=== PATIENT | female | born 1980 | race American Indian/Alaskan Native ===

== ENCOUNTER 2020-05-19 09:21 | Emergency (ER) | payer BC ==
[2020-05-19] MEDS ORDERED: KETOROLAC 30 MG/1 ML INJ IV ONE ×2 (10:52→16:47)
[2020-05-19] MEDS ORDERED: ONDANSETRON 4 MG/2 ML INJ IV ONE ×2 (10:52→16:57)
[2020-05-19] MEDS ORDERED: SODIUM CHLORIDE 0.9% 1000 ML 1,000 ML IV ONE (10:52)
--- NOTE | 2020-05-19 10:54 | Emergency Department Report ---
ED Abdominal Pain HPI - General Chief Complaint: Nausea/Vomiting/Diarrhea Stated Complaint: VOMIT/ABD PAIN Time Seen by Provider: 05/19/20 10:38 Source: patient Mode of arrival: Wheelchair Limitations: No Limitations - History of Present Illness Initial Comments: 40 yr old female presents to ED c/o Left sided abd pain/left flank pain. She states it started yesterday and it has been severe and constant and radiates into her back. She reports associated n/v/d. She states she has vomitted about 7 times since yesterday and she has had about 2-3 episodes of diarrhea. She denies any hematemesis, melena or hematoschezia. She reports hx of Kidney stones and states symptoms today feels similar. Her last flare up of Kidney stones was about mths ago. She denies any dysuria, urgency or frequency. She states she is currently on her menstrual cycle and there not sure about hematuria. She denies fever, chills or any other symptoms at this time. MD Complaint: abdominal pain, flank pain -: Sudden (yesterday) Location: LUQ, LLQ, L flank Radiation: none Severity: severe Severity scale (0 -10): 10 Quality: stabbing, sharp Consistency: constant Improves With: nothing Worsens With: nothing Associated Symptoms: nausea, vomiting, diarrhea. denies: fever, chills, constipation, dysuria, hematemesis, hematochezia, melena, hematuria, anorexia, syncope - Related Data Previous Rx's Medication Instructions Recorded Last Taken Type Ibuprofen [Motrin] 800 mg PO Q6HR PRN #30 tablet 05/19/20 Unknown Rx Ondansetron [Zofran Odt] 4 mg PO Q8HR PRN #15 tab.rapdis 05/19/20 Unknown Rx Oxycodone HCl/Acetaminophen 1 each PO Q4HR PRN #12 tablet 05/19/20 Unknown Rx [Percocet 10/325 mg] Tamsulosin [Flomax] 0.4 mg PO QDAY #5 cap 05/19/20 Unknown Rx Allergies Allergy/AdvReac Type Severity Reaction Status Date / Time Penicillins Allergy Unknown Verified 05/19/20 09:24 ED Review of Systems ROS: Stated complaint: VOMIT/ABD PAIN Other details as noted in HPI Comment: All other systems reviewed and negative Constitutional: denies: chills, fever Respiratory: denies: cough, shortness of breath, wheezing Cardiovascular: denies: chest pain, palpitations Gastrointestinal: abdominal pain, nausea, vomiting, diarrhea Genitourinary: denies: urgency, dysuria, frequency, abnormal menses Musculoskeletal: back pain Skin: denies: rash, lesions Neurological: as per HPI. denies: headache, weakness, numbness, paresthesias, confusion, abnormal gait, vertigo Psychiatric: denies: anxiety, depression Hematological/Lymphatic: denies: easy bleeding, easy bruising ED Past Medical Hx - Past Medical History Previous Medical History?: No - Surgical History Past Surgical History?: No - Social History Smoking Status: Never Smoker Substance Use Type: None - Medications Home Medications: Home Medications Medication Instructions Recorded Confirmed Last Taken Type Ibuprofen [Motrin] 800 mg PO Q6HR PRN #30 tablet 05/19/20 Unknown Rx Ondansetron [Zofran Odt] 4 mg PO Q8HR PRN #15 tab.rapdis 05/19/20 Unknown Rx Oxycodone HCl/Acetaminophen 1 each PO Q4HR PRN #12 tablet 05/19/20 Unknown Rx [Percocet 10/325 mg] Tamsulosin [Flomax] 0.4 mg PO QDAY #5 cap 05/19/20 Unknown Rx ED Physical Exam - General Limitations: No Limitations General appearance: alert, in distress (from pain) - Head Head exam: Present: atraumatic, normocephalic, normal inspection - Eye Eye exam: Present: normal appearance, PERRL Pupils: Present: normal accommodation - ENT ENT exam: Present: normal exam, mucous membranes moist - Neck Neck exam: Present: normal inspection - Respiratory Respiratory exam: Present: normal lung sounds bilaterally. Absent: respiratory distress - Cardiovascular Cardiovascular Exam: Present: regular rate, normal rhythm, normal heart sounds - GI/Abdominal GI/Abdominal exam: Present: soft, tenderness (Epigastric and LUQ abd ttp with mild guarding but no rebound). Absent: rebound, rigid - Back Exam Back exam: Present: normal inspection, full ROM. Absent: CVA tenderness (R), CVA tenderness (L) - Neurological Exam Neurological exam: Present: alert, oriented X3, CN II-XII intact - Psychiatric Psychiatric exam: Present: normal affect, normal mood, anxious - Skin Skin exam: Present: intact ED Course Vital Signs 05/19/20 05/19/20 05/19/20 09:26 11:10 11:40 Temperature 98.3 F Pulse Rate 67 Respiratory 18 18 16 Rate Blood Pressure 154/103 [Right] O2 Sat by Pulse 100 Oximetry 05/19/20 05/19/20 05/19/20 14:06 14:36 16:56 Temperature Pulse Rate Respiratory 16 16 18 Rate Blood Pressure [Right] O2 Sat by Pulse Oximetry 05/19/20 05/19/20 17:22 17:23 Temperature Pulse Rate 54 L Respiratory 16 16 Rate Blood Pressure 144/82 [Right] O2 Sat by Pulse 100 Oximetry ED Medical Decision Making - Lab Data Result diagrams: 05/19/20 10:55 05/19/20 16:45 - EKG Data -: EKG Interpreted by Me EKG shows normal: sinus rhythm Rate: bradycardia (56) - EKG Data Interpretation: no acute changes, normal EKG - Radiology Data Radiology results: report reviewed - Medical Decision Making 1530 -- Pt reports feeling much better after toradol, morphine, zofran and fluids. Labs/CT report reviewed - Pt with 7.8 Left ureteral stone. UA not concerning for UTI. Lipase elevated at [address] signs of pancreatitis. Discussed labs/CT report with Dr Carvajal, recommend repeating the BMP given low CO2, but if repeat is nl, agrees, pt can go home since her pain is under control with pain meds and antiemetics. Pt has urologist at [facility] whom she saw 6mths ago. 172 -- BMP shows improvement of CO2 from 12 to 20. Pt did have mild flare up of her pain and nausea while waiting for results. Repeat IV toradol, zofran ordered. Percocet PO also given. Pt reports feeling much better after meds. No indication for admission/transfer/emergent consult at this time. Pt stable enough to be discharged home. Patient given copy of CT report. Informed her to f/u with her urologist friday but also informed her that if her pain worsens despite meds to return immediately to ED. She states she lives closer to [facility], she was brought here from her job. Informed her that she can go to [place] [facility] if her pain becomes uncontrollable and to bring CT report. Patient expresses understanding of d/c instructions and agrees with plan. Critical care attestation.: If time is entered above; I have spent that time in minutes in the direct care of this critically ill patient, excluding procedure time. ED Disposition Clinical Impression: Kidney stone Disposition: - TO HOME OR SELFCARE Is pt being admited?: No Does the pt Need Aspirin: No Condition: Stable Instructions: Kidney Stones (ED) Additional Instructions: I recommend you take medications as prescribed. I recommend lots of water. I recommend you follow up with your urologist friday for follow up. Return to ED if pain worsens or symptoms changes. Prescriptions: Tamsulosin [Flomax] 0.4 mg PO QDAY #5 cap Ibuprofen [Motrin] 800 mg PO Q6HR PRN #30 tablet PRN Reason: Pain , Severe (7-10) Oxycodone HCl/Acetaminophen [Percocet 10/325 mg] 1 each PO Q4HR PRN #12 tablet PRN Reason: Pain Ondansetron [Zofran Odt] 4 mg PO Q8HR PRN #15 tab.rapdis PRN Reason: Vomiting Referrals: [facility] [Provider Group] - 2-3 Days Forms: Work/School Release Form(ED) Time of Disposition: 17:44
[2020-05-19 13:25] LABS: Basophils % (Auto) 0.2 % (0.0-1.8); Hematocrit 35.3 % (30.3-42.9); Lymphocytes % (Auto) 9.1 % (13.4-35.0); Mean Corpuscular HGB Conc 34 % (30-34); Mean Corpuscular Volume 94 fl (79-97); Monocytes % (Auto) 8.9 % (0.0-7.3); Platelet Count 208 K/mm3 (140-440); Red Blood Count 3.74 M/mm3 (3.65-5.03); Red Cell Distribution Width 14.4 % (13.2-15.2)
[2020-05-19] MEDS ORDERED: MORPHINE 4 MG/1 ML INJ IV ONE (13:56)
[2020-05-19 14:19] LABS: Bilirubin,Urine NEG (Negative); Blood,Urine LG (Negative); Color,Urine Yellow (Yellow); Mucus,Urine FEW /HPF; Protein,Urine <15 mg/dL mg/dL (Negative); Urobilinogen,Urine < 2.0 mg/dL (<2.0)
[2020-05-19 14:40] LABS: Albumin 4.6 g/dL (3.9-5); Calcium 10.7 mg/dL (8.4-10.2)
--- NOTE | 2020-05-19 14:44 | Cat Scan Report ---
CT ABDOMEN AND PELVIS WITHOUT CONTRAST INDICATION / CLINICAL INFORMATION: left abd pain/left flank pain. TECHNIQUE: Axial CT images were obtained through the abdomen and pelvis without IV contrast. All CT scans at [facility] are performed using CT dose reduction for ALARA by means of automated exposure control. COMPARISON: None available. FINDINGS: LOWER CHEST: There is mild bibasilar atelectasis. No additional significant abnormality. LIVER: No significant abnormality. GALLBLADDER: Surgically absent. BILE DUCTS: No significant abnormality. PANCREAS: No significant abnormality. SPLEEN: No significant abnormality. ADRENALS: No significant abnormality. RIGHT KIDNEY / URETER: No significant abnormality. LEFT KIDNEY / URETER: Along the middle third of the left ureter at the level of L4 is a stone measuri ng 7.3 mm with secondary moderate hydroureteronephrosis. Generalized edema is seen along the left kid aniceto with mild left periureteral fat stranding. No other significant abnormality. STOMACH / SMALL BOWEL: No significant abnormality. COLON: No significant abnormality. APPENDIX: No significant abnormality. PERITONEUM: No free fluid. No free air. No fluid collection. LYMPH NODES: No significant adenopathy. AORTA / ARTERIES: No significant abnormality. IVC / VEINS: No significant abnormality. URINARY BLADDER: No significant abnormality. REPRODUCTIVE ORGANS: No significant abnormality. ADDITIONAL FINDINGS: There is a small umbilical hernia containing fat without associated inflammation . SKELETAL SYSTEM: No significant abnormality. IMPRESSION: 1. Moderately obstructive 7.3 mm left ureteral stone as above. 2. Additional findings as above. Signer Name: Carlos Vaz MD Signed: 05/19/2020 2:39 PM Workstation Name: [id number]
[2020-05-19] MEDS ORDERED: oxyCODONE /ACETAMINOPHEN 5-325MG TAB PO ONE (16:57)
[2020-05-19 17:23] VITALS: BP 144/82
== END 2020-05-19 18:30 | disposition home or self-care (01) ==
LOC: ED 09:21
DX: N20.0 Calculus of kidney (principal); Z79.899 Other long term (current) drug therapy; Z88.0 Allergy status to penicillin
CPT/HCPCS: 36415; 74176; 80048; 80053; 81001; 83690; 84484; 84703; 85025; 93005; 96361; 96374; 96375; 96376; 99284; J1885; J2270; J2405; J7030